=== PATIENT | male | born 1965 | race African-American/Black ===

== ENCOUNTER 2016-11-12 15:28 | Emergency (ER) | payer OTHER ==
[~2016-11-12] VITALS: Ht 175.3 cm; Wt 81.6 kg
== END 2016-11-12 16:30 | disposition home or self-care (01) ==
LOC: CED 15:28
DX: S39.012A Strain of muscle, fascia and tendon of lower back, initial encounter (principal); F17.200 Nicotine dependence, unspecified, uncomplicated; Z88.8 Allergy status to other drugs, medicaments and biological substances; X58.XXXA Exposure to other specified factors, initial encounter
CPT/HCPCS: 99283

== ENCOUNTER 2016-11-16 16:36 | Emergency (ER) | payer OTHER ==
[~2016-11-16] VITALS: Ht 175.3 cm; Wt 79.4 kg
== END 2016-11-16 17:20 | disposition home or self-care (01) ==
LOC: CFTX 16:36 → CED 16:36 → CFTX 17:16
DX: M54.41 Lumbago with sciatica, right side (principal); F17.210 Nicotine dependence, cigarettes, uncomplicated; Z87.442 Personal history of urinary calculi
CPT/HCPCS: 99283